=== PATIENT | male | born 1950 | race Caucasian/White ===

== ENCOUNTER → 2016-06-19 | Outpatient (CLI) | payer OTHER ==
[~2016-06-19] MED LIST: ATENOLOL50 M1 PO; ATENOLOL50 MG PO; COUMADIN7.5 MG PO; DIOVAN320 MG PO; EXFORGE 10/31 TABLET; EXFORGE 5/161 TABLET PO; FENOFIBRATE160 M1 PO; NORVASC5 MG PO; TRAMADOL HCL50 MG PO; TRICOR145 MG; VITAMIN C500 M1 PO; WARFARIN SODIUM5 MG PO
[2016-06-19 09:57] LABS: HEMATOCRIT 43.7 % (38.0-50.0); MCH 29.4 PG (29.0-34.0); MCHC 34.3 G/DL (30.0-36.0); MCV 85.5 FL (86-99); MEAN PLAT.VOLUME 10.6 uM^3 (9.0-12.4); PLATELET COUNT 229 K/uL (156-360); RBC DIS.WIDTH-CV 12.1 % (11.8-14.6); RBC DIS.WIDTH-SD 37.7 % (39-53); RED BLOOD COUNT 5.11 M/uL (4.00-5.50); WHITE BLOOD COUNT 8.7 K/uL (4.1-10.2)
[2016-06-19 10:21] LABS: PTT 29.5 (25-32)
[2016-06-19 10:24] LABS: INTER. NORMALIZED RATIO 1.1; PROTHROMBIN TIME 11.3 (9.2-11.2)
== END | disposition home or self-care (01) ==
LOC: OPR 06-18 10:00 → RAD 06-18 11:00 → OPR 06-18 12:00 → EDSTATUS 10:00 → OPR 10:00
PROVIDERS: Surgery
PROC: 0W9F30Z Drainage of Abdominal Wall with Drainage Device, Percutaneous Approach (ICD-10-PCS; principal; 2016-06-19)
DX: R18.8 Other ascites (principal); L02.211 Cutaneous abscess of abdominal wall
CPT/HCPCS: 10030; 78226; 85027; 85610; 85730; 87070; 87075; 87205; A9537; C1769; J3010

== ENCOUNTER → 2016-06-28 | Outpatient (CLI) | payer OTHER | END | disposition home or self-care (01) | LOC: RAD 06-27 13:00 | DX: T88.8XXA Other specified complications of surgical and medical care, not elsewhere classified, initial encounter (principal) | CPT/HCPCS: 74150 ==